=== PATIENT | female | born 1980 | race Caucasian/White ===

== ENCOUNTER → 2022-02-02 | Outpatient (CLI) | payer SELFPAY | LOC: KOH-I 09:59 | DX: R10.12 Left upper quadrant pain (principal); K76.0 Fatty (change of) liver, not elsewhere classified | CPT/HCPCS: 72100; 76700 ==

== ENCOUNTER → 2022-04-07 | Outpatient (CLI) | payer OTHER | LOC: CT 13:31 | DX: K76.89 Other specified diseases of liver (principal) | CPT/HCPCS: 36415; 74170; 82565; 84520; Q9967 ==